=== PATIENT | male | born 2000 | race African-American/Black ===

== ENCOUNTER 2022-08-24 14:44 | Outpatient (CLI) | payer OTHER ==
[2022-08-24 15:33] VITALS: BP 98/56
--- NOTE | 2022-08-24 15:33 | SLEEP CARE CONSULTATION ---
Information from patient questionnaire entered by Rafaela Farris. I have reviewed and concur with the information entered by Rafaela Farris. This document represents the service I personally performed and the decisions made by me, Veda Grigsby ARNP. History of Present Illness Service Date and Time: 08/24/2022 1444 Chief Complaint: reports: Excessive daytime sleepiness, Fatigue Date of Onset: 3-4 MONTHS Usual bedtime: 2100 Time it takes to fall asleep: 5 MIN Snores at night: Yes Observed to quit breathing while asleep: No Sleeps alone due to snoring: No Number of times waking at night: 2 Reasons for waking at night: reports: Bathroom, Other (unknown reasons). denies: Choking, Snoring, Gasping for air Toss, Turn, or Twitch while sleeping: No Recalls having dreams: No (nightmares last week, last thing he remembers dreaming) Usually gets out of bed at: 0530 Feels refreshed in the morning: No Morning headache: No Sleepy or fatigued during the day: Yes Ever fallen asleep while driving: Yes (sometimes, drowsy driving; no accidents) Takes day naps: No (sometimes naps on weekends, if able) Dreams during day naps: No Prior sleep studies: No Additional HPI information: I had the pleasure of seeing CHET COHEN today regarding the possibility of him having a sleep disorder. His current complaints are excessive daytime sleepiness and fatigue. He states it does not matter how much sleep he gets he still wakes up tired. He is tired throughout the day. He states his has told him he snores sometimes. He has not woke himself up snoring or with choking, gasping in his sleep. - Parasomnia Symptoms Ever been unable to move upon waking from sleep: No Walks in sleep: No Talks in sleep: No Ever acted out dreams in sleep: No Ever felt weak in the knees when startled or emotional: No Bothered by creepy, crawly, restless sensations in legs: No Problems with memory or concentration: Yes (both) Subjective Initial [place] Sleepiness Scale score: 17 (08/08/22) Past Medical History Past Medical History: reports: Anxiety, Depression Social History The patient's occupation is a [employer]. Patient is Single and lives in . Have you smoked in the past 12 months: Yes Cigarettes per day (20/pack): 4 Years of smokin Smoking Pack Years: 0.6 Alcohol use: Yes Alcohol amount and frequency: 6 BEERS WEEKLY Caffeine use: Yes Caffeine amount and frequency: 1 CUP DAILY Family History Family history of sleep disordered breathing: No Allergies and Home Medications Known drug allergies: No Drug allergies reviewed: Yes (NKDA) Home medication list reviewed: Yes Allergy and home medication list: Medications: Paxil, he is not taking at this time Review of Systems Cardiovascular: denies: high blood pressure Respiratory: denies: shortness of breath Gastrointestinal: denies: heartburn Neurological: denies: headaches, head trauma Psychiatric: reports: anxiety, depression Ear/Nose/Throat: reports: nasal congestion, sinus problems, nose bleeds Musculoskeletal: reports: neck pain, back pain Immunologic: reports: sneezing Physical Exam Vital signs obtained and entered by: RAFAELA Low MA Blood Pressure: 98/56 (LEFT ARM) Cuff size: regular Heart Rate: 69 O2 Saturation: 98 Height: 6 ft Weight: 169 lb 3.2 oz Body Mass Index: 22.9 BMI Classification: Normal Neck circumference: 15.75 Mouth and throat: narrow oropharynx Soft palate: long Hard palate: normal Uvula: normal Uvula visualization: 50% Mallampati Class II Tongue: normal in size Tonsils: small Neck: normal w/o lymphadenopathy or thyromegaly Heart: regular rate and rhythm Lungs: clear bilaterally Impression and Plan 1. Suspected Obstructive Sleep Apnea-Hypopnea Syndrome, as suggested by a history of loud and irregular snoring, unrefreshed sleep, cognitive impairment, and excessive daytime sleepiness. Narrow oropharynx and obesity are common predisposing factors for obstructive sleep apnea-hypopnea syndrome. I recommend proceeding to polysomnography to confirm the diagnosis and to assess severity. If the patient has significant sleep disordered breathing, a manual CPAP titration study will also be performed to find the optimal treatment pressure. I informed the patient of what the sleep studies involve and after some discussion, obtained agreement to proceed. The pathophysiology of obstructive sleep apnea-hypopnea syndrome was discussed with the patient and health risks of cardiovascular and cerebrovascular disease if not treated. Risks of drowsy driving discussed in detail and patient advised to avoid long distance driving and to government affairs specialist at the first sign of drowsiness. Patient agreed to plan. * Schedule polysomnography * Avoid long distance driving or driving when feeling sleepy. * Avoid alcohol, sedative and muscle relaxant around bedtime. * Review instructions provided by trained office staff on how to prepare for the sleep study. * Return for follow-up after sleep study completed. Visit Type: In Office Time Spent with Patient (minutes): 30 Provider Statement: I spent 100% of the Face to Face Visit with the patient with greater than 50% spent counseling the patient and coordination of care.
== END 2022-08-24 14:45 | disposition home or self-care (01) ==
LOC: SC 14:44
PROVIDERS: ATTEND Nurse Practitioner Family
DX: G47.33 Obstructive sleep apnea (adult) (pediatric) (principal); F17.200 Nicotine dependence, unspecified, uncomplicated
CPT/HCPCS: 99203; 99212

== ENCOUNTER 2022-09-22 08:25 | Outpatient (CLI) | payer OTHER ==
[2022-09-22 08:48] VITALS: BP 110/70
--- NOTE | 2022-09-22 08:48 | SLEEP CARE CONSULTATION ---
Information from patient questionnaire entered by Zuri Farris. I have reviewed and concur with the information entered by Zuri Farris. This document represents the service I personally performed and the decisions made by , Veda Grigsby ARNP. History of Present Illness Service Date and Time: 09/22/2022 08 Initial [place] Sleepiness Scale score: 17 (08/08/22) Current [place] Sleepiness Scale score: 18 (09/22/22) Additional HPI information: CHET COHEN returns for follow up and results of the recently performed polysomnography. The patient was informed of the following findings: No significant sleep disordered breathing with an average AHI of 2.0 and alexandra oxygen saturation of 92%. I explained the pathophysiology behind obstructive sleep apnea. Patient does not have sleep apnea and was advised how weight gain could increase the risk of developing sleep apnea in the future. Patient has light to moderate snoring. Snoring can be reduce by weight loss but patient is at a normal weight. Snoring can also be treated with an oral appliance from a dentist. Advised to check insurance coverage. In addition, an ENT evaluation can be do to see if other treatment is indicated. Patient counseled not drink alcohol less than 4 hours before bedtime as it can increase snoring and apnea. Patient was cautioned about risks of drowsy driving until sleepiness symptoms resolve. Patient denies drowsy driving. Sleep Study - Results Type of Sleep Study: Polysomnography (COMPLETED 09/07/2022) Prior sleep studies: No Allergies and Home Medications Drug allergies reviewed: Yes (NKDA) Home medication list reviewed: Yes (no changes) Review of Systems Review of systems same as previous: Yes (no changes) Physical Exam Vital signs obtained and entered by: ZURI Low MA Blood Pressure: 110/70 (LEFT ARM) Cuff size: regular Heart Rate: 58 O2 Saturation: 98 Height: 6 ft Weight: 168 lb 12.8 oz Body Mass Index: 22.8 BMI Classification: Normal Impression and Plan Snoring but no significant sleep disordered breathing. Patient advised that often weight loss will reduce snoring as well as apnea risk. An oral appliance can also be used for snoring. This would require a dental consultation. Patient cautioned not to use other online appliances as can cause bite issues. A list of accredited dentists in [facility] and one local dentist who makes oral appliances is available in office. Patient is advised to check if insurance will cover. An ENT consult can also be helpful to determine if any other treatment is an option. * Avoid alcohol consumption near bedtime * The patient is cautioned about driving when tired. * Return as needed for follow up. Visit Type: In Office Time Spent with Patient (minutes): 10 Provider Statement: I spent 100% of the Face to Face Visit with the patient with greater than 50% spent counseling the patient and coordination of care.
== END 2022-09-22 08:26 | disposition home or self-care (01) ==
LOC: SC 08:25
PROVIDERS: ATTEND Nurse Practitioner Family
DX: R06.83 Snoring (principal)
CPT/HCPCS: 99212